=== PATIENT | male | born 1950 | race Caucasian/White ===

== ENCOUNTER → 2020-07-08 | Outpatient (CLI) | payer OTHER ==
[~2020-07-08] VITALS: Ht 182.9 cm; Wt 79.8 kg
[~2020-07-08] MED LIST: ALTACE2.5 MG PO; ASA81BEC PO; ATORVASTATIN CA80 MG PO; NEURONTIN300 MG PO; NITROSTAT0.4 M1 SUBLING; OMEGA 3 FISH O1 EACH PO; PLAVIX 75 MG TA75 MG PO; PROTONIX40 M2 PO; TOPROL XL25 MG PO; VITAMIN B-121000 MC2 SUBLING
--- NOTE | ~2020-07-08 | HPC ---
[facility] [address] PAIN MANAGEMENT CONSULTATION Name: ONEL ALLEN Room #: REG THEO Cl#: [id number] Admission: 07/08/20 Attend Phys: Jose Sanches DO Discharge: Date of : 52 Report #: [id number] THIS REPORT FOR: cc: Poornima Orozco MD, Cora A. MD Johnson, James E. DO ~ DOC #: [id number] cc: MD Jose Saldivar DO DATE OF SERVICE: 07/08/2020 CHIEF COMPLAINT: Low back pain, right lower extremity pain with paresthesias. HISTORY OF PRESENT ILLNESS: As you know, the patient is a 70-year-old male who had acute onset of low back pain, right lower extremity pain with paresthesias began 10/16/2019. The patient denies injury or trauma that may have led to symptom development. Initially, he believed he may have injured his hip and trialled conservative treatment such as haqr-bpe-cysjgps medications, rest and relaxation. He does take Tylenol p.r.n., which reportedly provides minimal benefit. He has been doing home physical therapy and stretching exercises without effect. He is starting formalized physical therapy next week. He was given a Medrol Dosepak in 12/2019 with no benefit. The patient was referred for MRI of the lumbar spine, but was not covered by his insurance until more conservative treatment was exhausted including physical therapy. He continues to experience symptoms of discomfort up to a level of 10/10 and further adjustments were made in his treatment. Unfortunately, no significant pain improvement was noted. He was referred to our clinic to discuss treatment options. The patient reports today, his pain is periodic. He describes the pain as more of a shooting sensation. He places current pain score at 8/10 daily, average of 5/10, worst pain has been is 10/10. The patient states that coughing, sneezing and bearing down and a bowel movement exacerbates symptoms. He states that a tincture of time and "sometimes walking it off" improves pain. He has been referred to our service to discuss treatment options for suspected lumbar radiculopathy. PAST MEDICAL HISTORY: 1. Hypertension. 2. Chronic lung disease. 3. Coronary artery disease status post percutaneous stenting. 4. Dyslipidemia. 5. Gastroesophageal reflux disease. PAST SURGICAL HISTORY: Percutaneous stenting 06/09/2019 of the coronary arteries. [address] [address] PAIN MANAGEMENT CONSULTATION Name: ONEL ALLEN [id number] Admission: 07/08/20 Attend Phys: Jose Sanches DO Discharge: Date of : 52 Report #: [id number] SOCIAL HISTORY: The patient smokes 2 packs of tobacco per day, has done so for 53 years. Denies IV or illicit drug use. Admits to 3 alcoholic beverages per day. He is a software quality specialist. He is working, not receiving workmen's compensation nor is he trying to obtain disability benefits. Not in litigation in regards to pain. He is unaccompanied at today's visit. REVIEW OF SYSTEMS: Positive for weight gain for wearing corrective eyewear, hearing loss with tinnitus, shortness of breath with walking or lying flat, heart trouble, frequent and recurrent coughs, frequent diarrhea interspersed with constipation, nocturia, bleeding, bruising tendencies, low back pain, right lower extremity pain with paresthesias. All other review of systems negative per 12-point review of systems other than those listed in history of present illness. Pain impact score 22/70. Mild to moderate interference of daily activities secondary to pain. ALLERGIES: No known drug allergies. CURRENT MEDICATIONS: Aspirin 81 mg per day, atorvastatin 80 mg per day, Plavix 75 mg per day, cyanocobalamin 1000 mcg per day, metoprolol 25 mg per day, nitroglycerin 0.4 mg p.r.n., pantoprazole 40 mg per day, ramipril 2.5 mg once a day, [place] 3 fish oil 1 tab per day. IMAGING: X-ray of the lumbar spine obtained 05/06/2020 shows a grade I retrolisthesis L5 on S1. Mild degenerative changes at L5-S1 disk level. No acute bony pathology. PQRS: The patient has known arthritic changes of the lumbar spine. Based on recent x-ray, no rheumatoid arthritis, placing pain intensity today 2/10, is not a fall risk, does not have fall in last 3 months. He is on blood thinners in the form of Plavix and continue the medication at today's visit. He is treated for hypertension. He is not on opioids, but has an opioid risk factor moderate to severe based on our assessment tool. Pain impact is 2270. Mild to moderate interference of daily activities secondary to pain. PHYSICAL EXAMINATION: VITAL SIGNS: Blood pressure 127/86, pulse 72, respiratory rate 14 and unlabored. The patient is 97% on room air, height 6 feet tall, weight 176 pounds, BMI calculated 23.9. GENERAL: Well-developed, well-nourished, well-hydrated 70-year-old male appearing his stated age, smells strongly of tobacco smoke, placing current pain score 2/10. HEENT: Normocephalic, atraumatic. Pupils equal, round and reactive. The patient is wearing a mask in compliance with COVID-19 regulations. LUNGS: Decreased breath sounds bilaterally, prolonged expiratory phase. No wheezes, rhonchi or rales. [facility] [address] [place] [address] PAIN MANAGEMENT CONSULTATION Name: ONEL ALLEN Room #: REG [facility]#: [id number] Admission: 07/08/20 Attend Phys: Jose Sanches DO Discharge: Date of : 52 Report #: [id number] CARDIOVASCULAR: Regular. No appreciable gallop, no rub. ABDOMEN: Soft. EXTREMITIES: Show no clubbing, no cyanosis. No appreciable edema. MUSCULOSKELETAL: Lower extremity strength is symmetrical 5/5. Slight giveaway strength noted with hip flexion, knee extension on the right when compared to left. Seated straight leg raising negative. Supine straight leg raising positive on the right. Fabere's test is negative. Modified Gaenslen's positive for axial back pain. Ankle clonus negative. Babinski is negative. Deep tendon reflexes are symmetrical at the patella and Achilles. ASSESSMENT: 1. Symptomatic lumbar radiculopathy. 2. Displacement of lumbar intervertebral disk with radiculopathy. 3. Facet arthropathy of lumbar spine. 4. Grade I retrolisthesis of L5 on S1. 5. Chronic intractable pain. PLAN: 1. Based on today's physical exam, the history the patient provides, the description the patient uses in regards to pain as well as the location of symptoms, likely source of the patient's pain is a lumbar radiculopathy. We do have x-ray imaging, which showed some changes at the L5-S1 level, which may be the source of symptoms. Unfortunately, we do not have definitive imaging in the form of MRI to be able to discuss with the patient the specific pathology that exists. The distribution of symptoms is consistent with an S1 dermatomal distribution involving the right lower extremity with pain generated in the low back to the buttock down the posterior portion of the leg of underside of the foot, which is the S1 dermatomal distribution. We discussed with the patient the treatment options based on our physical exam today and the distribution of symptoms, the patient has been complaining of pain upon. The following was discussed with the patient. We discussed physical therapy, stretching exercises and core strengthening techniques as a treatment course. We discussed medication management utilizing consistent neuropathic pain medications such as amitriptyline, nortriptyline, Cymbalta, Lyrica or gabapentin. We discussed epidural injection under fluoroscopic guidance to address lumbar radicular symptoms. We also discussed spinal cord stimulator therapy and ultimately surgical options. After reviewing the risks and benefits of all proposed treatment options, the patient chose to begin with an adjustment in medication management. He will then obtain clearance to come off his Plavix. If he can obtain this, then we would look towards a lumbar epidural injection. 2. The patient will be started on gabapentin 300 mg dose. He will start 1 tab p.o. at bedtime for 3 nights, then increase to 2 tabs p.o. at bedtime for 3 nights. If no improvement in symptoms, no side effects, then go to 3 tabs p.o. at bedtime. I have given the patient, #90 tablets to begin the titration. The [address] [address] PAIN MANAGEMENT CONSULTATION Name: ONEL ALLEN Room #: REG THEO [place]#: [id number] Admission: 07/08/20 Attend Phys: Jose RodriguezRashel Myron Discharge: Date of : 52 Report #: [id number] patient was advised at anytime during the titration, he notes improvement in symptoms, he will stabilize at that dose, no further escalation. If no improvement in symptoms, no side effects, continue the titration as directed. He will watch for side effects of sleepiness, disorientation, confusion, mental slowing with the use of the medication. If he notes any of these reduce to the dose prior and contact our clinic. 3. The patient will obtain clearance to come off his Plavix. He will need to be off the Plavix for 7 days. This is based on CHAPIN guidelines. If the patient is able to obtain this authorization, he will come off the Plavix 7 days prior to his return visit to undergo lumbar epidural injection under fluoroscopic guidance. He will discuss this with the prescribing physician of the Plavix and confirm he can come off the medication if necessary. 4. We plan to see the patient back in followup visit to discuss the efficacy of the medication in approximately 21 days. At that time, we will discuss whether or not adjustments in the gabapentin are going to be necessary or whether we need to look towards interventional treatments. We will keep you apprised of the direction of treatment at that followup visit. 5. The patient and I did discuss today about his ongoing smoking. He has an extensive smoking history of nearly 70 pack years of tobacco abuse. We recommend that he begin to wean off of these as quickly as possible. Smoking has direct effect upon chronic pain and if the patient does wish to improve symptoms, he will need to make adjustments in his social lifestyle to address the chronic pain more efficiently. We offered to the patient various options to decrease smoking. The patient at this time is not willing to avail himself of those options. 6. We wish to thank the referring physician, Dr. Poornima Orozco for the opportunity to see the patient in consultation. We will keep you apprised of his response to treatment as we address suspected lumbar radiculopathy. Again, we wish to thank you for the opportunity to see this patient in consultation. DO MALCOM Galarza/HEYDI By: 0815 10 Jose Sanches DO /nt
[2020-07-08 12:54] VITALS: BP 127/86
--- NOTE | 2020-07-08 13:04 | NUR ---
Pain Clinic Assessment: 1. History of Osteoarthritis: Not Applicable History of Rheumatoid Arthritis: Not Applicable 2. Height: 6 ft. 0 in. 182.9 cm. Weight: 176.0 lb. oz. 79.833 kg. Patient's BMI: 23.9 3. Vital Signs: BP: 127/86 Pulse: 72 Resp: 14 Temp: 02 Sat: 97 ECG Mon: 4. Pain Intensity: 2 5. Fall Risk: Dizziness: N Needs help standing or walking: N Fallen in the last 3 months: N Fall risk comments: 6. Patient on Blood Thinner: Clopidogrel Bisulf(Plavix 7. History of Hypertension: Y 8. Opioid Therapy greater than 6 weeks: Opiate Contract Signed: 9. Risk Assessment Tool Provided: 6 MODERATE RISK 10. Functional Assessment Tool: 11. Recreational Drug Use: Never Drug Type: Tobacco Use: Current Every Day Smoker Tobacco Type: Cigarettes Amount or Packs/day: 1 1/2 PACKS How Many Years: Alcohol Use: Yes Frequency: Daily Quant: 2-3
== END ==
LOC: PAIN 10:29
PROVIDERS: ATTEND Anesthesiology Pain Medicine
DX: M51.16 Intervertebral disc disorders with radiculopathy, lumbar region (principal); G89.4 Chronic pain syndrome; Z79.891 Long term (current) use of opiate analgesic; Z79.899 Other long term (current) drug therapy

== ENCOUNTER → 2020-08-05 | Outpatient (CLI) | payer OTHER ==
[~2020-08-05] VITALS: Ht 182.9 cm; Wt 81.0 kg
[2020-08-05 10:18] VITALS: BP 119/75
--- NOTE | 2020-08-05 10:23 | NUR ---
Pain Clinic Assessment: 1. History of Osteoarthritis: Not Applicable History of Rheumatoid Arthritis: Not Applicable 2. Height: 6 ft. 0 in. 182.9 cm. Weight: 178.6 lb. oz. 81.012 kg. Patient's BMI: 24.2 3. Vital Signs: BP: 119/75 Pulse: 89 Resp: 16 Temp: 02 Sat: 96 ECG Mon: 4. Pain Intensity: 1 5. Fall Risk: Dizziness: N Needs help standing or walking: N Fallen in the last 3 months: N Fall risk comments: 6. Patient on Blood Thinner: Clopidogrel Bisulf(Plavix 7. History of Hypertension: Y 8. Opioid Therapy greater than 6 weeks: Opiate Contract Signed: 9. Risk Assessment Tool Provided: 6 MODERATE RISK 10. Functional Assessment Tool: 11. Recreational Drug Use: Never Drug Type: Tobacco Use: Current Every Day Smoker Tobacco Type: Cigarettes Amount or Packs/day: 1 1/2 PACK How Many Years: 50 Alcohol Use: Yes Frequency: Daily Quant: 2-3
--- NOTE | 2020-08-08 12:39 | HPC ---
[facility] [place] [address] PAIN MANAGEMENT CONSULTATION Name: ONEL ALLEN [facility] [id number] Admission: 08/05/20 Attend Phys: Jose Sanches DO Discharge: Date of : 52 Report #: [id number] THIS REPORT FOR: cc: Poornima Orozco MD, Cora A. MD Johnson, James E. DO ~ DOC #: [id number] cc: MD Jose Saldivar DO DATE OF SERVICE: 08/05/2020 CHIEF COMPLAINT: Low back pain, right lower extremity pain with paresthesias. HISTORY OF PRESENT ILLNESS: As you know, the patient is a 70-year-old male reporting acute onset of low back pain, right lower extremity pain with paresthesia began 10/16/2019. He denies injury or trauma that may led to symptom development. Initially, I believe he may have injured his hip and sought treatment for that ultimately determining his symptoms are related to the lumbar spine. He was seen in consultation per the request of his primary care physician, Dr. Orozco on 07/08/2020 diagnosed with symptomatic lumbar radiculopathy secondary to the displacement of lumbar intervertebral disk. He was also noted on x-ray imaging to have a grade I retrolisthesis of L5 on S1. He chose to begin with conservative treatment options. He states that a week and a half ago, he awoke with instantaneous and severe low back pain. He states this lasted for about 2 to 3 hours and then resolved spontaneously. He followed up with his PCP, who stated he should maintain his normal daily activities and that they would watch for any recurrence of symptoms. Apparently, he was given a prednisone taper at that visit. He has just completed a second prednisone taper, but reports that Tuesday of this week he was lying in bed, awakened with instantaneous back pain, but no lower extremity symptoms. He states he was ambulating on a walker, decided that he was going to hang from that walker via his arms. He states that the stretching improves his pain almost instantaneously. Due to the 2 incidences of recurrence of back pain without radiation, the patient was referred back to our clinic. He has some x-ray imaging obtained on 05/06/2020 which shows a grade I retrolisthesis of L5 on S1, mild degenerative changes, but no other findings. He wishes to discuss treatment options today. He is placing pain at no greater than 1/10. He has had resolution of his symptoms once again spontaneously with activity involving his roller walker. ALLERGIES: No known drug allergies. CURRENT MEDICATIONS: Gabapentin, omega 3 fish oil, ramipril, pantoprazole, nitroglycerin, metoprolol, cyanocobalamin, Plavix, atorvastatin and aspirin. SOCIAL HISTORY: The patient continues to smoke up to 2 packs a [place] [address] PAIN MANAGEMENT CONSULTATION Name: ONEL ALLEN Jemma Room #: REG [facility]#: [id number] Admission: 08/05/20 Attend Phys: Jose Sanches DO Discharge: Date of : 52 Report #: [id number] so for years. He denies IV or illicit drug use. Admits to 3 alcoholic beverages per day. He is unaccompanied at today's visit. IMAGING: There is no new imaging available. PQRS: The patient has known arthritic changes of the lumbar spine. Based on x-ray imaging, no rheumatoid arthritis. He is placing pain intensity today at 1/10. He is not a fall risk, has not had a fall in last 3 months. He is on blood thinners in the form of Plavix and took the medication this morning. He is treated for hypertension. He is not on chronic opioids, has a moderate to severe opioid addiction potential based on assessment tool. Pain impact is 22/70, mild interference of daily activities secondary to pain. PHYSICAL EXAMINATION: VITAL SIGNS: Blood pressure 119/75, pulse 89, respiratory rate 16 and unlabored. The patient is 96% on room air, height 6 feet tall, weight 178.6 pounds, BMI calculated 24.2. GENERAL: Well-developed, well-nourished, well-hydrated 70-year-old male, smells strongly of tobacco smoke, placing current pain score of 1/10. HEENT: Normocephalic, atraumatic. He is wearing a mask in compliance with COVID-19 regulations. EXTREMITIES: Show no clubbing and no cyanosis. No appreciable edema. MUSCULOSKELETAL: Seated straight leg raising is negative. Supine straight leg raising positive on the right. Fabere's test is negative. Modified Gaenslen's positive for axial low back pain. Muscle bulk and tone is symmetrical in lower extremities. Strength appears normal and symmetrical. Capillary refill is normal and symmetrical bilaterally. ASSESSMENT: 1. Symptomatic lumbar radiculopathy. 2. Grade I retrolisthesis of L5 on S1. 3. Displacement of lumbar intervertebral disk with radiculopathy. 4. Facet arthropathy of lumbar spine. 5. Chronic intractable pain. 6. Acute onset of intense low back pain. PLAN: 1. The patient has returned today in followup visit reporting 2 different incidences of intense pain that awoke him from bed. Luckily each of those incidences resolved spontaneously. He indicates the pain intensity was so great that he could not even ambulate. He did rely on a roller walker after the incident this previous Tuesday. He has received a Medrol Dosepak from his PCP, which he has just completed. He believes this may have improved his symptoms. He returns today in followup visit to discuss treatment options. 2. The patient and I discussed that we would like to obtain further imaging. We will send the patient for flexion, extension films of the lumbar spine to [address] [address] PAIN MANAGEMENT CONSULTATION Name: ONEL ALLEN Room #: REG [facility].#: [id number] Admission: 08/05/20 Attend Phys: Jose Sanches DO Discharge: Date of : 52 Report #: [id number] confirm whether or not the spondylolisthesis at L5-S1 is moving pathologically. If this is moving pathologically, surgical options will have to be entertained. I will have the patient undergo the flexion and extension films today. Hopefully, we will have those available to us by this afternoon or tomorrow so that we can review those findings. We did discuss with the patient that further imaging would be quite beneficial, especially if he is looking toward surgical options. He states he is talking with his PCP about obtaining an MRI of the lumbar spine. We will await those findings. 3. The patient and I discussed the possibility of undergoing a lumbar epidural injection under fluoroscopic guidance. He would have to come off his anticoagulants, Plavix for 1 week. I have requested that he contact his prescribing wheel worker in regards to the Plavix therapy. If he can come off the medication for the 7 days required by CHAPIN guidelines, we would be more than willing to provide the patient an epidural injection. He will contact his wheel worker today. If he is able to come off the medication, we will plan to see him back on next Tuesday to undergo a lumbar epidural injection under fluoroscopic guidance. He will keep us apprised of whether or not he can come off the medication. 4. I did advise the patient if he is able to come off the Plavix for the next 7 days, we would recommend anti-inflammatory therapy for the next 7 days. This could be done with taking 2-3 ibuprofen over the counter 200 mg tablets up to 3 times a day. This could only be done while the patient is off his Plavix. It cannot be utilized concurrently with the Plavix therapy. If the patient is able to come off the Plavix, he can start the ibuprofen for pain control as we await the epidural injection. 5. We plan to see the patient back in followup visit, possibly as early as next week to undergo lumbar epidural injection. We will await a phone call from the patient in regards to whether or not he can come off the Plavix before scheduling from that appointment. He will be following up with his PCP in regards to MRI imaging that they have been discussing prior to his visit here today. Jose Sanches DO JEJ/HEYDI <ELECTRONICALLY SIGNED> By: Jose Sanches DO 08/08/20 [id number] Jose Sanches DO /nt
== END ==
LOC: PAIN 06:46
PROVIDERS: ATTEND Anesthesiology Pain Medicine
DX: G89.29 Other chronic pain (principal); M53.87 Other specified dorsopathies, lumbosacral region; M51.16 Intervertebral disc disorders with radiculopathy, lumbar region; M47.26 Other spondylosis with radiculopathy, lumbar region; M79.604 Pain in right leg; I10 Essential (primary) hypertension; Z68.24 Body mass index [BMI] 24.0-24.9, adult; Z79.891 Long term (current) use of opiate analgesic; Z79.899 Other long term (current) drug therapy

== ENCOUNTER → 2020-08-12 | Outpatient (CLI) | payer OTHER ==
[~2020-08-12] VITALS: Ht 182.9 cm; Wt 80.7 kg
--- NOTE | ~2020-08-12 | HPC ---
[facility] [place] [address] PAIN MANAGEMENT CONSULTATION Name: ONEL ALLEN Room #: [facility] Cl#: [id number] Admission: 08/12/20 Attend Phys: Jose Sanches DO Discharge: Date of : 52 Report #: [id number] THIS REPORT FOR: cc: Poornima Orozco MD, Cora A. MD Johnson, James E. DO ~ DOC #: [id number] cc: MD Jose Saldivar, DATE OF SERVICE: 08/12/2020 CHIEF COMPLAINT: Low back pain, right lower extremity pain with paresthesias. HISTORY OF PRESENT ILLNESS: As you know, the patient is a 70-year-old male with acute onset of low back pain, right lower extremity pain with paresthesias, who presented on 10/16/2019. Denies any specific injury or trauma. He had failed conservative treatment, doing home physical therapy, stretching exercises without benefit. He was given oral medication in hopes of improving symptoms, which did not provide much in the way of long-term benefit. He was subsequently referred to our clinic where he was seen on 07/08/2020, diagnosed with lumbar radiculopathy secondary to the displacement of a lumbar intervertebral disk and an underlying grade 1 retrolisthesis of L5 on S1. He was provided treatment options and chose to undergo lumbar epidural injection under fluoroscopic guidance. We were unable to provide that injection on the first visit as the patient was on Plavix and needed to discontinue that medication. He has received authorization to come off that medication for the 7 days required by [place] guidelines. He returns today to undergo a lumbar epidural injection under fluoroscopic guidance. He is placing pain score 2/10. He has had no changes in his medication management except for discontinuing of the Plavix since our last visit. He has sustained no new injury or trauma. ALLERGIES: No known drug allergies. CURRENT MEDICATIONS: Aspirin, atorvastatin, cyanocobalamin, metoprolol, nitroglycerin, pantoprazole, ramipril, omega 3 fish oil; and Plavix, held for past 7 days. 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 Denies IV or illicit drug use. Admits to 3 alcoholic beverages per day. He is a manager quality systems, working, not receiving workmen's compensation, unaccompanied today. IMAGING: No new imaging available. PQRS: The patient has known arthritic changes of the lumbar spine. Based on x-ray imaging, no rheumatoid arthritis. He is placing current pain score at [address] [address] PAIN MANAGEMENT CONSULTATION Name: ONEL ALLEN Jemma Room #: [facility] Cl#: [id number] Admission: 08/12/20 Attend Phys: Jose Sanches DO Discharge: Date of : 52 Report #: [id number] 03/26. He is not a fall risk and has not had a fall in last 3 months. He is on Plavix, but discontinued the medication 7 days ago in preparation for today's procedure. He is treated for hypertension, not on chronic opioids, has a moderate to high risk of opioid addiction based on assessment tool. Pain impact is 22/70. He has mild to moderate interference of daily activities secondary to pain. PHYSICAL EXAMINATION: VITAL SIGNS: Blood pressure 123/82, pulse 61, respiratory rate 16 and unlabored. The patient is 97% on room air. Height 6 feet tall, weight 178 pounds, BMI calculated 24.1. GENERAL: Well-developed, well-nourished, well-hydrated 70-year-old male, appears stated age, smells strongly of tobacco smoke, placing current pain score 2/10. HEENT: Normocephalic, atraumatic. He is wearing a mask in compliance with COVID-19 regulations. EXTREMITIES: Show no clubbing, no cyanosis, no appreciable edema. MUSCULOSKELETAL: Lower extremity strength is symmetrical. Seated straight leg raising negative. Supine straight leg raising positive on the right. ASSESSMENT: 1. Symptomatic lumbar radiculopathy. 2. Grade 1 retrolisthesis of L5 on S1. 3. Displacement of lumbar intervertebral disk with radiculopathy. 4. Facet arthropathy, lumbar spine. 5. Chronic intractable pain. PLAN: 1. The patient returns today in followup visit having discontinued his Plavix in preparation for a lumbar epidural injection. The patient has been advised of the risks and the benefits of a lumbar epidural injection. These risks include but are not necessarily limited to bleeding, bruising, infection, worsening pain, no relief of pain, also risk of temporary or permanent muscle weakness, temporary or permanent nerve damage, possible paralysis, post-dural puncture headache, allergic reaction of medication and . The patient states understood and wished to proceed. 2. No medication changes made at today's visit. The patient will restart his Plavix this evening and continue dosing as prescribed. 3. We will see the patient back in followup visit for the next in the series of lumbar epidural injections. We have made him an appointment in 30 days to discuss this further. PROCEDURE NOTE DESCRIPTION OF PROCEDURE: L5-S1 interlaminar epidural steroid injection under fluoroscopic guidance. [address] [address] PAIN MANAGEMENT CONSULTATION Name: ONEL ALLEN Room #: [facility]#: [id number] Admission: 08/12/20 Attend Phys: Jose Sanches DO Discharge: Date of : 52 Report #: [id number] This is the first procedure of the first series that the patient is undergoing. After obtaining written consent, the patient was taken back to the fluoroscopy suite, placed in a prone position with pillow under the abdomen to decrease lumbar lordosis. The skin overlying the lumbosacral area was then prepped and draped in aseptic fashion. The L5-S1 vertebral interspace was then identified by AP fluoroscopy. The skin and subcutaneous tissue overlying the target site of injection was anesthetized with 3 mL 1% lidocaine. A 20 gauge 3.5 inch Tuohy needle was then advanced under fluoroscopic guidance towards the epidural space using a right parasagittal approach. The epidural space was identified using loss of resistance to air technique. After negative aspiration for heme or cerebrospinal fluid, a total of 1 mL of Omnipaque was injected. A lumbar epidurogram was confirmed using both AP and lateral fluoroscopy. After negative aspiration for heme or cerebrospinal fluid, 5 mL of a solution containing 2 mL 40 mg per mL 80 mg total triamcinolone along with 3 mL of lidocaine 1% was injected in increments. Contrast spread was noted in posterior epidural space. The needle was then retracted approximately half way and needle tract flushed with 1 mL of 1% lidocaine. Needle was then removed. There were no apparent sensory or motor deficits in the lower extremity following the procedure. A sterile bandage was placed over the injection site. The heart rate, pulse, oximetry and blood pressure were continuously monitored after the procedure. There were no apparent complications. The patient tolerated the procedure well and was carefully escorted to the recovery room in stable condition. There were no apparent complications. After meeting discharge criteria, the patient was then discharged home. Jose Sanches DO JEJ/ANDERSON By: [id number] Jose Sanches DO /nt
[2020-08-12 13:22] VITALS: BP 123/82
--- NOTE | 2020-08-12 13:30 | NUR ---
Pain Clinic Assessment: 1. History of Osteoarthritis: Not Applicable History of Rheumatoid Arthritis: Not Applicable 2. Height: 6 ft. 0 in. 182.9 cm. Weight: 178.0 lb. oz. 80.740 kg. Patient's BMI: 24.1 3. Vital Signs: BP: 123/82 Pulse: 61 Resp: 16 Temp: 02 Sat: 97 ECG Mon: 4. Pain Intensity: 2 5. Fall Risk: Dizziness: N Needs help standing or walking: N Fallen in the last 3 months: N Fall risk comments: 6. Patient on Blood Thinner: Clopidogrel Bisulf(Plavix 7. History of Hypertension: Y 8. Opioid Therapy greater than 6 weeks: Opiate Contract Signed: 9. Risk Assessment Tool Provided: 6 MODERATE RISK 10. Functional Assessment Tool: 11. Recreational Drug Use: Never Drug Type: Tobacco Use: Current Every Day Smoker Tobacco Type: Cigarettes Amount or Packs/day: 1 1/2 packs How Many Years: Alcohol Use: Yes Frequency: Daily Quant: 2-3
== END | disposition home or self-care (01) ==
LOC: PAIN 13:12
PROVIDERS: ATTEND Anesthesiology Pain Medicine
DX: M51.16 Intervertebral disc disorders with radiculopathy, lumbar region (principal); M47.26 Other spondylosis with radiculopathy, lumbar region; M43.16 Spondylolisthesis, lumbar region; G89.29 Other chronic pain; I10 Essential (primary) hypertension; F17.210 Nicotine dependence, cigarettes, uncomplicated; Z98.890 Other specified postprocedural states; Z79.899 Other long term (current) drug therapy